=== PATIENT | male | born 1960 | race Caucasian/White ===

== ENCOUNTER 2019-04-29 19:01 | Emergency (ER) | payer BC ==
[~2019-04-29] VITALS: Ht 185.4 cm; Wt 120.5 kg
[~2019-04-29 19:01] MED LIST: ASPIRIN 81M81 MG/TA2 PO; CELEBREX 1100 MG/CAP PO; FLEXERIL5 MG PO; INDOCIN50 MG PO; NORCO 325 MG-7.1 TAB PO; PRINZIDE 12.5 M1 TA1 PO; TENORMIN 2525 MG/TAB PO; TYLENOL ARTHRI650 M1 PO; ULTRAM 50MG TAB50 MG PO; VALIUM 5MG T5 MG/TAB PO
[2019-04-29 19:10] VITALS: TEMP 97.6
[2019-04-29] MEDS ORDERED: LOPRESSOR 225 MG/TAB PO (22:55)
[2019-04-29] MEDS ORDERED: NEURONTIN300 MG/CAP PO (22:58)
[2019-04-29 23:43] LABS: BASO # 0.1 (0.0-0.2); BASO % 0.6 % (0.0-2.0); EOS # 0.2 (0.0-0.7); EOS % 1.7 % (0-4.0); GRAN # 5.8 (1.4-6.5); GRAN % 58.3 % (42.2-75.2); HEMATOCRIT 50.3 % (42.0-52.0); HEMOGLOBIN 17.8 g/dl (13.5-18.0); LYMPH # 2.8 (1.2-3.4); MEAN CELL VOLUME 93 fl (80.0-100.0); MEAN CORPUSCULAR HEMOGLOBIN 33 pg (27.0-31.0); MEAN CORPUSCULAR HGB CONC 35 g/dl (33.0-37.0); MEAN PLATELET VOLUME 9.5 fl (7.4-10.4); MONO # 1.1 (0.1-0.6); MONO % 10.7 % (1.7-9.3); PLATELET COUNT 221 K/mm3 (130-400); RED BLOOD COUNT 5.43 M/mm3 (4.20-5.60); REDCELL DISTRIBUTION WIDTH-CV 11.9 % (11.5-14.5)
[2019-04-30 00:09] LABS: ALANINE AMINOTRANSFERASE 25 U/L (21-72); ALBUMIN 4.6 gm/dL (3.5-5.0); ALKALINE PHOSPHATASE 54 U/L (50-136); ANION GAP 11 mmol/L (7-16); AST,SGOT 30 U/L (15-37); BILIRUBIN,TOTAL 0.6 mg/dL (0.0-1.0); BLOOD UREA NITROGEN 20 mg/dL (9-20); C-REACTIVE PROTEIN 0.7 mg/dL (0.0-0.9); CALCIUM 9.3 mg/dL (8.4-10.2); CARBON DIOXIDE 27 mmol/L (22-30); CHLORIDE 98 mmol/L (98-107); CREATININE, serum 0.97 (0.66-1.25); GLUCOSE 91 mg/dL (74-106); POTASSIUM 4.3 mmol/L (3.4-5.0); SODIUM 136 mmol/L (137-145); TOTAL PROTEIN 8.4 gm/dL (6.4-8.2)
[2019-04-30 00:17] LABS: TROPONIN-I < 0.012 ng/mL (0.000-0.035)
[2019-04-30] MEDS ORDERED: PERCOCET 325 MG1 TA2 PO (01:02)
[2019-04-30 01:22] VITALS: BP 126/82; PULSE 95
== END 2019-04-30 01:22 | disposition home or self-care (01) ==
LOC: COL.ER 19:01
PROVIDERS: Nurse Practitioner
DX: M54.6 Pain in thoracic spine (principal); I10 Essential (primary) hypertension
CPT/HCPCS: J1170; J7030